=== PATIENT | female | born 1950 | race Two or more races ===

== ENCOUNTER 2020-06-29 12:30 | Inpatient (IN) | payer OTHER ==
[~2020-06-29] VITALS: Ht 162.6 cm; Wt 123.4 kg
[2020-06-29] MEDS ORDERED: AVALIDE 300-121 EACH PO (15:37)
[2020-06-29] MEDS ORDERED: SYNTHROID50 MCG PO (15:37)
[2020-06-29] MEDS ORDERED: METFORMI PO (15:38)
[2020-07-06] MEDS ORDERED: MELOXICAM7.5 MG (07:54)
[2020-07-06] MEDS ORDERED: HYDROCHLOROTH12.5 MG (07:54)
[2020-07-06] MEDS ORDERED: METFORMIN HCL500 M4 (07:55)
[2020-07-08] MEDS ORDERED: XARELTO10 MG PO (07:47)
[2020-07-08] MEDS ORDERED: OXYC1TAB9 PO (07:47)
[2020-07-08] MEDS ORDERED: INTEGRA PLUS C1 EACH PO (07:47)
== END 2020-07-08 12:57 | DRG 470 ==
LOC: SURH 07-06 05:05 → O/R 07-06 05:05 → SURH 07-06 10:45
PROVIDERS: ADMIT Orthopaedic Surgery Sports Medicine; ATTEND Orthopaedic Surgery Sports Medicine
PROC: 0SRC0J9 Replacement of Right Knee Joint with Synthetic Substitute, Cemented, Open Approach (ICD-10-PCS; principal; 2020-07-06 10:45)
DX: M17.11 Unilateral primary osteoarthritis, right knee (principal); I10 Essential (primary) hypertension; E11.9 Type 2 diabetes mellitus without complications; Z96.651 Presence of right artificial knee joint; Z20.822 Contact with and (suspected) exposure to COVID-19

== ENCOUNTER 2020-12-21 09:45 | Inpatient (IN) | payer OTHER ==
[~2020-12-21] VITALS: Ht 154.9 cm; Wt 118.8 kg
[~2020-12-21 09:45] MED LIST: AVALIDE 300-121 EACH PO; HYDROCHLOROTH12.5 MG; INTEGRA PLUS C1 EACH PO; MELOXICAM7.5 MG; METFORMI PO; METFORMIN HCL500 M4; OXYC1TAB9 PO; SYNTHROID50 MCG PO; XARELTO10 MG PO
[2020-12-28] MEDS ORDERED: ATORVASTATIN CA10 MG (10:50)
[2020-12-28] MEDS ORDERED: IRBESARTAN300 MG (10:51)
[2020-12-28] MEDS ORDERED: HYDROCHLOROTH12.5 MG (10:51)
[2020-12-30] MEDS ORDERED: INTEGRA PLUS C1 EACH PO (06:08)
[2020-12-30] MEDS ORDERED: BACTRIM DS TAB1 EACH PO (06:09)
[2020-12-30] MEDS ORDERED: XARELTO10 MG PO (06:09)
[2020-12-30] MEDS ORDERED: OXYC1TAB9 PO (06:09)
== END 2020-12-30 15:54 | DRG 470 ==
LOC: O/R 12-28 06:10 → SURG 12-28 06:10 → SURH 12-28 09:45 → SURG 12-28 14:25
PROVIDERS: ADMIT Orthopaedic Surgery Sports Medicine; ATTEND Orthopaedic Surgery Sports Medicine
PROC: 0SRD0J9 Replacement of Left Knee Joint with Synthetic Substitute, Cemented, Open Approach (ICD-10-PCS; principal; 2020-12-28 10:45)
DX: M17.12 Unilateral primary osteoarthritis, left knee (principal); E11.9 Type 2 diabetes mellitus without complications; I10 Essential (primary) hypertension; Z20.822 Contact with and (suspected) exposure to COVID-19